=== PATIENT | female | born 1940 | race Caucasian/White ===

== ENCOUNTER 2017-01-03 21:53 | Emergency (ER) | payer OTHER ==
--- NOTE | ~2017-01-03 | CT4 ---
[facility]. [facility] A Service of [facility] RADIOLOGY TEXT RESULTS PATIENT: EARLINE HARRIS LOCATION: SED : 39 UNIT #: [id number] AGE: [address]: Aldo Pink MD SEX: F ORDER DR: [id number] [address] [address] [id number] E MR#: [id number] Acc #: [id number] NAME: EARILNE HARRIS. : 1940 SEX: F STUDY DATE/TIME: 01/03/2017 23:35 UNIT: SED ROOM: STUDY DESCRIPTION: CT Abd and Pelv Wo Cont Attending Physician: Aldo Pink M.D. Ordering Physician: Aldo Pink M.D. Primary Care Physician: Primary Care Physician No MEDICAL IMAGING REPORT This report is preliminary unless electronic signature is present. EXAM CT abdomen and pelvis without contrast 01/03/2017 23:35 HISTORY 76-year-old female abdominal pain with passing blood for [address] abdomen and pelvis without contrast 01/23/2008. TECHNIQUE This CT examination was performed with one or more of the following radiation dose reduction techniques: automatic exposure control, adjustment of mA and/or kV according to patient size, and iterative reconstruction. PROCEDURE 3 mm noncontrast axial images through the abdomen and pelvis. Enteric contrast was not administered. Sagittal and coronal reformatted images were obtained. FINDINGS ABDOMEN: Lung bases are free of consolidation. Heart size is within normal limits. Trace pericardial fluid is similar to the 2007 examination. Mild intrahepatic biliary ductal prominence or dilation up to 4 mm is similar to the 2007 examination. Common bile duct caliber is 8 mm, within normal limits for the patient's stated age. Cholecystectomy. No focal liver lesion. The pancreas is atrophic and partially fatty replaced. The spleen and adrenal glands are normal. Low-density bilateral renal lesions are thought to represent cysts, 1 in the right upper pole measuring 8 mm, another in the left lower pole measuring 1.3 cm. No shadowing renal stone or hydronephrosis. Abdominal aortic caliber is within normal limits, with mild calcific atherosclerosis. [facility] A Service of [facility] & [facility] RADIOLOGY TEXT RESULTS PATIENT: EARLINE HARRIS LOCATION: [facility] : [facility] UNIT #: [id number] AGE: [address]: Aldo Pink MD SEX: F ORDER DR: The appendix is not visualized but no pericecal inflammation is seen. Limited evaluation of bowel due to lack of enteric contrast. Sparse diverticular changes are seen within the sigmoid colon without evidence of acute diverticulitis. No definite active bowel inflammatory process is identified. PELVIS: Urinary bladder and rectum appear stable and within normal limits. Features of pelvic floor laxity with a small enterocele suspected. Hysterectomy. Questionable circumferential anal thickening, correlation with physical examination findings would be recommended. Degenerative changes of the lumbar spine and pubic symphysis. No acute osseous abnormalities are identified. IMPRESSION 1. Questionable anal wall thickening circumferentially. Correlate with physical examination findings. 2. Limited evaluation of bowel due to lack of enteric contrast but no focal bowel inflammatory changes are appreciated. No evidence of high-grade large or small bowel obstruction. No adenopathy, free air or free fluid is seen. 3. Signs of pelvic floor laxity with suspected enterocele. Presumed hysterectomy. 4. Uncomplicated sparse sigmoid diverticulosis. 5. Very mild prominence of the intrahepatic and extrahepatic bile ducts is unchanged from 2008 without obstructing lesion identified. This may represent normal variant for this patient. If patient has symptoms referable to the right upper quadrant, and/or abnormal liver function tests, this could be correlated to ERCP or MRCP. 6. Cholecystectomy. 7. Bilateral renal cysts. Dictated by... Celeste Macario M.D. THIS IS AN ELECTRONICALLY VERIFIED REPORT Celeste Macario M.D. at 01/04/2017 10:03 PM JOSEPHINE/sari TD: 01/04/2017 06:53 JOB #: [id number] MEDICAL IMAGING REPORT
[~2017-01-03 21:53] MED LIST: ADVAIR 2501 DISK W/D PO; ADVAIR 5001 DISK W/1; ADVAIR 5001 DISK W/D PO; ALBUTEROL; ALBUTEROL MININEB NEB; ALBUTEROL17 GM INH; ALBUTEROL17 GM NEB; ALBUTEROL2.5 MG/0.5; ALDACTONE25 MG PO; ALLERGY RELIE15.8 ML; AMARYL PO; AMBIEN PO; AMITRIP PO; AMITRYPTYLINE PO; AMLODIPINE BESYL5 MG; AMLODIPINE BESYL5 MG PO; ASPIRIN81 MG; ASPIRIN81 MG PO; ASPIRINEC PO; ATORVASTATIN CA80 MG; AZITHROMYCIN250 MG PO; BENZONATATE PO; BLOOD PRESSURE MED; CELEXA PO; CIPRO PO; CLARITIN10 M2; CLARITIN10 M2 PO; CLOPIDOGREL BIS75 MG; CLOPIDOGREL75 MG PO; COMBIVENT INH14.7 GM; COMBIVENT MININEB INH; DESYREL100 MG PO; DESYREL50 MG; DESYREL50 MG PO; DETROL LA PO; DIABETIC MED; DIAZEPAM; DIAZEPAM PO; FLOMAX0.4 MG; FLONASE 0.05% N16 G1; FUROSEMIDE40 MG; FUROSEMIDE80 MG PO; GABAPENTIN300 MG PO; GLUCOPHAGE500 MG; GLUCOPHAGE500 MG PO; HUMULIN R100 U/ML SUBQ; HYDROCODON-ACE1 EAC5 PO; HYDROCODON-ACE1 EAC7 PO; IMDUR-ER30 M1 PO; INSULIN; IPRAT-ALBUT 0.5-3 ML INH; IPRATROPIUM0.2 MG/ML; IPRATROPIUM0.2 MG/ML NEB; K-DUR20 ME1 PO; KCL; KCL PO; KLOR-CON PO; KROGER PHARMACY; LANTUS SOLOSTAR3 ML; LANTUS SOLOSTAR3 ML SQ; LANTUS SOLOSTAR3 ML SUBQ; LASIX; LASIX PO; LEVAQUIN PO; LEVAQUIN750 MG; LEVAQUIN750 MG PO; LEVO-T125 MCG; LEVOTHYROXINE25 MC1 PO; LEVOXYL125 MCG PO; LEVOXYL150 MC1 PO; LIORESAL PO; LIPITOR PO; LIPITOR40 MG PO; LISINOPRIL20 MG PO; LOPRESSOR PO; LORTAB 10/500 T1 TAB PO; LORTAB 7.5-5001 TAB; LOSARTAN POTAS100 MG PO; LOSARTAN POTASS50 MG PO; MEDROL PO; MEDROL4 MG/DOSE- PO; METOPROLOL SUCC25 MG PO; METOPROLOL TART25 MG PO; MICRO-K PO; NEURONTIN; NEURONTIN PO; NEURONTIN300 MG; NEURONTIN600 MG PO; NEXIUM; NEXIUM PO; NILSTAT PO; NITROGLYCERIN0.4 MG; NITROGLYCERIN0.4 MG SL; NITROGLYGERIN0.4 MG SL; NORCO1 TAB 10/3; NOVOLIN R100 U/ML INJ; NOVOLOG100 U/ML; PANTOPRAZOLE SO40 MG PO; PATIENT'S PHARMACY; PAXIL CR; PERPHEN PO; PHENERGAN PO; PHENERGAN25 MG PO; PREDNISONE PO; PROAIR HFA INH; PROAIR HFA PO; PROAIR RESPICL90 MCG; PROTONIX; PROTONIX PO; SERTRALINE HCL100 M1 PO; SERTRALINE HCL100 MG; SERTRALINE HCL100 MG PO; SPIRIVA18 MCG; SPIRIVA18 MCG INH; SULAR PO; SYNTHROID; SYNTHROID PO; TRADJENTA5 MG PO; VIBRAMYCIN100 M1 PO; VITAMIN D250000 UNIT PO; WELCHOL625 MG PO; ZETIA PO; ZOLOFT PO; ZYMAR5 ML OP; ZYRTEC10 M2 PO; [UNRECOGNIZED DRUG - OTHER]; [UNRECOGNIZED DRUG - OTHER] OP
[2017-01-03 22:34] LABS: BASOPHIL# 0.1 X10e3 (0-0.3); BASOPHIL% 0.4 % (0-2.5); EOSINOPHIL# 0.1 X10e3 (0-0.7); EOSINOPHIL% 0.6 % (0.0-7.0); HEMATOCRIT 40.1 % (35.0-45.0); HEMOGLOBIN 13.2 gm/dL (12.0-16.0); INR 1.1; LYMPHOCYTE# 1.3 X10e3 (1.0-3.5); LYMPHOCYTE% 10.5 % (17.0-45.0); MEAN CELL VOLUME 90.8 FL (83-96); MEAN CORPUSCULAR HEMOGLOBIN 29.8 PG (28-34); MEAN CORPUSCULAR HGB CONC 32.9 g/dL (30-36); MEAN PLATELET VOLUME 7.9 FL (6.5-11.5); MONOCYTE# 0.6 X10e3 (0-1.0); MONOCYTE% 5.1 % (3.0-12.0); NEUTROPHIL# 10.3 X10e3 (1.5-7.1); NEUTROPHIL% 83.4 % (40-75); PLATELET COUNT 277 X10e3 (140-420); PROTHROMBIN TIME (PATIENT) 12.3 SECONDS (9.5-12.4); RED BLOOD COUNT 4.42 X10e (3.90-5.30); RED CELL DISTRIBUTION WIDTH 13.5 % (11.0-15.5); WHITE BLOOD COUNT 12.3 X10e3 (4.0-10.5)
[2017-01-03 22:42] LABS: PARTIAL THROMBOPLASTIN TIME 23.9 SECONDS (25.6-38.1)
[2017-01-03 22:43] LABS: DIFF IND NO
[2017-01-03 22:45] LABS: ALBUMIN SERUM 4.6 g/dL (3.5-5.0); ALKALINE PHOSPHATASE 83 U/L (32-92); ALT (SGPT) 19 U/L (10-40); AST (SGOT) 17 U/L (10-42); BILIRUBIN,TOTAL 0.6 mg/dL (0.2-2.0); BLOOD UREA NITROGEN 24 mg/dL (9-23); BUN/CREATININE RATIO 18.46; CALCIUM SERUM 10.8 mg/dL (8.4-10.2); CARBON DIOXIDE 28 mmol/L (22-31); CHLORIDE 100 mmol/L (100-111); CREATININE SERUM 1.3 mg/dL (0.6-1.4); GLOM FILT RATE Estimated 42.2 mL/min (>60); GLUCOSE FASTING 157 mg/dL (70-110); LIPASE 26 U/L (22-51); POTASSIUM 3.2 mmol/L (3.5-5.1); PROTEIN TOTAL SERUM 7.7 g/dL (6.0-8.3); SODIUM 139 mmol/L (135-145)
[2017-01-03 22:53] LABS: URINE APPEARANCE SL HAZY; URINE COLOR DK YELLOW
[2017-01-03 22:54] LABS: MICRO INDICATED? YES; URINE BLOOD TRACE-INTACT (NEG); URINE GLUCOSE NEG (NEG); URINE KETONE TRACE (NEG); URINE LEUKOCYTE ESTERASE 1+ (NEG); URINE NITRATE NEG (NEG); URINE PROTEIN NEG (NEG); URINE UROBILINOGEN 0.2 MG/DL (NEG)
[2017-01-03 22:55] LABS: BILIRUBIN, DIRECT <0.1 mg/dL (0.0-0.2); BILIRUBIN,INDIRECT 0.5 mg/dL (0.0-0.9)
[2017-01-03 22:58] LABS: CULTURE INDICATED? YES; URINE BACTERIA 2+ (NEG); URINE CRYSTALS CALCIUM OXALATE /[HPF]; URINE SQUAMOUS EPITHELIAL CELL MODERATE /[HPF]; URINE WBC 25-50 /[HPF] (0-5)
[2017-01-03 22:59] LABS: URINE AMORPHOUS SEDIMENT AMORP URATES; URINE MUCUS PRESENT
== END 2017-01-04 00:41 | disposition home or self-care (01) ==
LOC: SED 21:53
PROVIDERS: Emergency Medicine
DX: K92.2 Gastrointestinal hemorrhage, unspecified (principal); N39.0 Urinary tract infection, site not specified; Z88.0 Allergy status to penicillin; Z88.2 Allergy status to sulfonamides; Z88.6 Allergy status to analgesic agent; Z91.040 Latex allergy status; Z88.1 Allergy status to other antibiotic agents; Z79.899 Other long term (current) drug therapy
CPT/HCPCS: 36415; 74176; 80048; 80076; 81003; 83690; 85025; 85610; 85730; 87086; 96374; 99284; C9113

== ENCOUNTER → 2017-01-08 | Outpatient (CLI) | payer OTHER ==
--- NOTE | ~2017-01-08 | BD1 ---
[facility] A Service of [facility] & [facility] RADIOLOGY TEXT RESULTS PATIENT: EARLINE HARRIS LOCATION: [facility] : 39 UNIT #: [id number] AGE: [address]: TANYA JENNINGS SEX: F ORDER DR: [id number] [address] [address] [id number] O MR#: [id number] Acc #: [id number] NAME: EARLINE HARRIS : 1940 SEX: F STUDY DATE/TIME: 01/08/2017 11:01 UNIT: [facility] ROOM: STUDY DESCRIPTION: Dexa Bone Dens 1+ Site Attending Physician: Tanya Jennings M.D. Referring Physician: Tanya Jennings M.D. Ordering Physician: Physician Non-Staff Primary Care Physician: Primary Care Physician No MEDICAL IMAGING REPORT This report is preliminary unless electronic signature is present. EXAM DXA scan, 01/08/2017 HISTORY Status post menopause with no hormone replacement therapy. Osteoporosis. Thyroid medication. FINDINGS Bone mineral density in the lumbar spine from L1-L4 was 1.034 g/cm2 which is 1.2 standard deviations below the mean when compared to the young adult reference population which is characteristic of osteopenia. This is 0.2 standard deviations above the mean when compared to the age-matched population. Compared with 10/12/2013 there has been an increase in bone mineral density in the lumbar spine of 8%. Bone mineral density in the left femoral neck was 0.798 g/cm2 which is 1.7 standard deviations below the mean when compared to the young adult reference population which is characteristic of osteopenia. This is 0.1 standard deviations above the mean when compared to the age-matched population. Compared with 10/12/2013 there has been an increase in bone mineral density in the left hip of 2.3%. Bone mineral density in the right femoral neck was 0.902 g/cm2 which is 1 standard deviation below the mean when compared to the young adult reference population which is characteristic of osteopenia. This is 0.8 standard deviations above the mean when compared to the age-matched population. Compared with 10/12/2013 there has been an increase in bone mineral density in the right hip of 1.1%. IMPRESSION Bone mineral density in the lumbar spine and the hips bilaterally characteristic of osteopenia. Compared with 10/12/2013 there has been an increase in bone mineral density in the lumbar spine and the hips [facility] A Service of [facility] & [facility] RADIOLOGY TEXT RESULTS PATIENT: EARLINE HARRIS LOCATION: [facility] : 39 UNIT #: [id number] AGE: [address]: TANYA JENNINGS SEX: F ORDER DR: bilaterally. Dictated by... Suleiman Sams M.D. THIS IS AN ELECTRONICALLY VERIFIED REPORT Suleiman Sams M.D. at 01/08/2017 5:48 PM Keaton TD: 01/08/2017 14:58 JOB #: [id number] MEDICAL IMAGING REPORT
== END | disposition home or self-care (01) ==
LOC: SRAD 10:41
DX: Z13.820 Encounter for screening for osteoporosis (principal); Z78.0 Asymptomatic menopausal state
CPT/HCPCS: 77080

== ENCOUNTER 2017-04-25 15:41 | Emergency (ER) | payer OTHER ==
--- NOTE | ~2017-04-25 | CT16 ---
[facility] A Service of [facility] RADIOLOGY TEXT RESULTS PATIENT: EARLINE HARRIS LOCATION: SED : 39 UNIT #: [id number] AGE: [address]: Ewelina Mata MD SEX: F ORDER DR: [id number] [address] [address] [id number] E MR#: [id number] Acc #: [id number] NAME: EARLINE HARRIS. : 1940 SEX: F STUDY DATE/TIME: 04/25/2017 17:39 UNIT: SED ROOM: STUDY DESCRIPTION: CT Angio Chest for PE Attending Physician: Ewelina Mata M.D. Ordering Physician: Ewelina Mata M.D. MEDICAL IMAGING REPORT This report is preliminary unless electronic signature is present. EXAM CT angiogram chest with IV contrast HISTORY Left side chest pain and wheezing, shortness of air and dyspnea for [address] exam was performed with one or more of the following radiation dose reduction techniques: automatic exposure control, adjustment of mA and/or kV according to patient size, and iterative reconstruction. FINDINGS IV contrast to CT angiogram chest was performed with 3-D reconstructions. No focal pulmonary infiltrates or effusions. No pulmonary nodule or mass. Minimal subpleural atelectasis in the posterior right lower lobe. No pulmonary embolus. Normal-caliber pulmonary arteries. No adenopathy. Very small pericardial effusion. IMPRESSION 1. No acute findings. No evidence of pulmonary embolus. 2. Very small pericardial effusion. 3. No active disease in the lungs. Dictated by... Rory Carmichael M.D. THIS IS AN ELECTRONICALLY VERIFIED REPORT Rory Carmichael M.D. at 04/26/2017 5:36 PM YAZAN/manjinder [facility] A Service of [facility] RADIOLOGY TEXT RESULTS PATIENT: EARLINE HARRIS LOCATION: SED : 39 UNIT #: [id number] AGE: [address]: Ewelina Mata MD SEX: F ORDER DR: TD: 04/26/2017 07:50 JOB #: [id number] MEDICAL IMAGING REPORT Page 1 of 1
--- NOTE | ~2017-04-25 | EKG ---
PATIENT: EARLINE HARRIS UNIT #: [id number] Ventricular Rate: 51 BPM Atrial Rate: 51 BPM P-R Interval: 144 ms QRS Duration: 82 ms Q-T Interval: 460 ms QTC Calculation(Bezet): 423 ms P [place]: 41 degrees Calculated R [place]: -18 degrees Calculated T [place]: 5 degrees Diagnosis Line: Sinus bradycardia Diagnosis Line: Minimal voltage criteria for LVH, may be normal Diagnosis Line: variant Diagnosis Line: Possible Anterolateral infarct , age undetermined Diagnosis Line: Abnormal ECG Diagnosis Line: When compared with ECG of 01-NOV-2016 14:57, Diagnosis Line: No significant change was found Diagnosis Line: Confirmed by ELIZABET CHENG MD ([id number]) on Diagnosis Line: 04/26/2017 11:04:25 AM INTERPRETING MD: SKYLAR PEREZ
--- NOTE | ~2017-04-25 | CT2 ---
[facility]. [facility] A Service of [facility] & [facility] RADIOLOGY TEXT RESULTS PATIENT: EARLINE HARRIS LOCATION: SED : 39 UNIT #: [id number] AGE: [address]: Ewelina Mata MD SEX: F ORDER DR: [id number] [address] [address] [id number] E MR#: [id number] Acc #: [id number] NAME: EARLINE HARRIS. : 1940 SEX: F STUDY DATE/TIME: 04/25/2017 16:28 UNIT: SED ROOM: STUDY DESCRIPTION: CT Abd and Pelv W Cont Attending Physician: Ewelina Mata M.D. Ordering Physician: Ewelina Mata M.D. MEDICAL IMAGING REPORT This report is preliminary unless electronic signature is present. EXAM CT abdomen and pelvis with IV contrast HISTORY Less side abdomen pain and left chest pain, and dyspnea for [address] exam was performed with one or more of the following radiation dose reduction techniques: automatic exposure control, adjustment of mA and/or kV according to patient size, and iterative reconstruction FINDINGS CT abdomen and pelvis was performed with IV contrast. CT abdomen: Intrahepatic biliary ductal dilatation with the left central intrahepatic ducts measuring up to 1.3 cm diameter and the central right intrahepatic ducts measuring up to 1 cm. Dilatation of the common hepatic duct measuring 1.8 cm in the common bile duct measuring 1.2 cm. These findings have progressed compared to CT 01/03/2017, and could be secondary to distal common bile duct stricture. No intraluminal filling defect is identified. Suggest correlation to serum bilirubin. Diffuse fatty infiltration of the pancreas and pancreatic parenchymal atrophy. Incidental 2 cm medial descending duodenal diverticulum. The spleen, and adrenal glands are normal. Incidental small bilateral renal cysts measuring up to 1.6 cm in the mid-left kidney. Normal caliber abdominal aorta. Small pericardial effusion. CT pelvis: Hysterectomy. Pelvic floor insufficiency. Urinary bladder is normal. Mild sigmoid diverticulosis. No diverticulitis. No free fluid. IMPRESSION Moderately severe to severe and progressive intra and extrahepatic biliary ductal dilatation compared to 01/03/2017 CT. No intraductal filling STS. [facility] A Service of [facility] & [facility] RADIOLOGY TEXT RESULTS PATIENT: EARLINE HARRIS LOCATION: SED : 39 UNIT #: [id number] AGE: [address]: Ewelina Mata MD SEX: F ORDER DR: defect is identified, but findings could be due to distal common bile duct stricture. Consider correlation to liver function tests and serum bilirubin. Followup MRCP or ERCP may be warranted. No acute findings in the remainder the abdomen or pelvis. Pelvic floor insufficiency. Hysterectomy. Cholecystectomy. Dictated by... Rory Carmichael M.D. THIS IS AN ELECTRONICALLY VERIFIED REPORT Rory Carmichael M.D. at 04/26/2017 5:38 PM Katja TD: 04/26/2017 08:25 JOB #: [id number] MEDICAL IMAGING REPORT Page 1 of 1
[2017-04-25 17:03] LABS: BASOPHIL# 0.1 X10e3 (0-0.3); BASOPHIL% 0.6 % (0-2.5); EOSINOPHIL# 0.1 X10e3 (0-0.7); EOSINOPHIL% 0.7 % (0.0-7.0); HEMATOCRIT 36.5 % (35.0-45.0); HEMOGLOBIN 12.4 gm/dL (12.0-16.0); LYMPHOCYTE% 24.9 % (17.0-45.0); MEAN CELL VOLUME 89.8 FL (83-96); MEAN CORPUSCULAR HEMOGLOBIN 30.6 PG (28-34); MEAN CORPUSCULAR HGB CONC 34.1 g/dL (30-36); MEAN PLATELET VOLUME 8.3 FL (6.5-11.5); MONOCYTE# 0.9 X10e3 (0-1.0); MONOCYTE% 7.2 % (3.0-12.0); NEUTROPHIL# 8.1 X10e3 (1.5-7.1); NEUTROPHIL% 66.6 % (40-75); PLATELET COUNT 258 X10e3 (140-420); RED BLOOD COUNT 4.06 X10e (3.90-5.30); RED CELL DISTRIBUTION WIDTH 14.4 % (11.0-15.5); WHITE BLOOD COUNT 12.2 X10e3 (4.0-10.5)
[2017-04-25 17:04] LABS: DIFF IND NO
[2017-04-25 17:13] LABS: POC - CKMB <1.0 ng/mL (0.0-7.9)
[2017-04-25 17:14] LABS: POC - TROPONIN <0.05 ng/mL (<=0.05)
[2017-04-25 17:17] LABS: PROTHROMBIN TIME (PATIENT) 11.1 SECONDS (9.5-12.4)
[2017-04-25 17:21] LABS: BILIRUBIN, DIRECT 0.1 mg/dL (0.0-0.2); BILIRUBIN,INDIRECT 0.5 mg/dL (0.0-0.9); BILIRUBIN,TOTAL 0.6 mg/dL (0.2-2.0); BUN/CREATININE RATIO 24.28; CALCIUM SERUM 8.8 mg/dL (8.4-10.2); CREATININE SERUM 0.7 mg/dL (0.6-1.4); POTASSIUM 3.4 mmol/L (3.5-5.1); PROTEIN TOTAL SERUM 6.3 g/dL (6.0-8.3)
[2017-04-25 17:48] LABS: MICRO INDICATED? NO; URINE APPEARANCE CLEAR; URINE BILIRUBIN NEG (NEG); URINE BLOOD NEG (NEG); URINE COLOR YELLOW; URINE GLUCOSE NEG (NORM); URINE KETONE NEG (NEG); URINE LEUKOCYTE ESTERASE NEG (NEG); URINE NITRATE NEG (NEG); URINE PROTEIN NEG (NEG); URINE SOURCE CLEAN CATCH; URINE SPECIFIC GRAVITY 1.025 (1.003-1.035); URINE UROBILINOGEN 0.2 MG/DL (NORM)
[2017-04-25 18:40] LABS: POC - CKMB <1.0 ng/mL (0.0-7.9); POC - TROPONIN <0.05 ng/mL (<=0.05)
== END 2017-04-25 20:19 | disposition home or self-care (01) ==
LOC: SED 15:41
PROVIDERS: Emergency Medicine
DX: J44.1 Chronic obstructive pulmonary disease with (acute) exacerbation (principal); R10.9 Unspecified abdominal pain; I50.9 Heart failure, unspecified; E11.9 Type 2 diabetes mellitus without complications; K21.9 Gastro-esophageal reflux disease without esophagitis; E78.5 Hyperlipidemia, unspecified; J44.9 Chronic obstructive pulmonary disease, unspecified; E03.9 Hypothyroidism, unspecified; G47.33 Obstructive sleep apnea (adult) (pediatric); M19.90 Unspecified osteoarthritis, unspecified site; Z90.49 Acquired absence of other specified parts of digestive tract; Z90.710 Acquired absence of both cervix and uterus; Z98.890 Other specified postprocedural states; Z95.5 Presence of coronary angioplasty implant and graft; Z79.82 Long term (current) use of aspirin; Z79.899 Other long term (current) drug therapy; Z88.0 Allergy status to penicillin; Z88.2 Allergy status to sulfonamides; Z88.1 Allergy status to other antibiotic agents; Z91.040 Latex allergy status; Z88.8 Allergy status to other drugs, medicaments and biological substances
CPT/HCPCS: 36415; 71275; 74177; 80048; 80076; 81003; 82553; 82947; 83605; 83880; 84484; 85025; 85610; 85730; 93005; 94640; 96365; 96375; 96376; 99285; J2270; J2405; J2930; J3475; Q9967

== ENCOUNTER 2017-06-10 15:00 | Emergency (ER) | payer OTHER ==
[~2017-06-10] VITALS: Ht 160 cm; Wt 76.2 kg
--- NOTE | ~2017-06-10 | EKG ---
PATIENT: EARLINE HARRIS UNIT #: [id number] Ventricular Rate: 46 BPM Atrial Rate: 46 BPM P-R Interval: 168 ms QRS Duration: 90 ms Q-T Interval: 490 ms QTC Calculation(Bezet): 428 ms P [place]: 34 degrees Calculated R [place]: -14 degrees Calculated T [place]: 32 degrees Diagnosis Line: Sinus bradycardia Diagnosis Line: Otherwise normal ECG Diagnosis Line: When compared with ECG of 25-APR-2017 17:14, Diagnosis Line: No significant change was found Diagnosis Line: Confirmed by BERT HUBER MD ([id number]) on 06/10/2017 Diagnosis Line: 7:01:43 PM INTERPRETING MD: CECILE PEREZ
--- NOTE | ~2017-06-10 | CR72 ---
[facility] A Service of [facility] & [facility] RADIOLOGY TEXT RESULTS PATIENT: EARLINE HARRIS LOCATION: [facility] : 39 UNIT #: [id number] AGE: [address]: Roslyn Byrnes MD SEX: F ORDER DR: [id number] [facility] [address] [place], [place] [address] [id number] E MR#: [id number] Acc #: [id number] NAME: EARLINE HARRIS. : 1940 SEX: F STUDY DATE/TIME: 06/10/2017 19:55 UNIT: [facility] ROOM: STUDY DESCRIPTION: CR Chest Single View Portable Attending Physician: Roslyn Byrnes M.D. Ordering Physician: Roslyn Byrnes M.D. Primary Care Physician: Amaury Swain Jr., A.P.R.N. MEDICAL IMAGING REPORT This report is preliminary unless electronic signature is present EXAM Portable chest. HISTORY Shortness of air and dizzy for 1 month. FINDINGS Mild cardiac enlargement. Normal pulmonary vascularity. Tortuous descending thoracic aorta. No airspace infiltrates or effusions. Minimal mid-left thoracic curve. IMPRESSION No acute findings. Mild cardiac enlargement. Dictated by... Rory Carmichael M.D. THIS IS AN ELECTRONICALLY VERIFIED REPORT Rory Carmichael M.D. at 06/11/2017 4:09 PM DFL/anthony TD: 06/11/2017 08:33 JOB #: [id number] MEDICAL IMAGING REPORT Page 1 of 1 COPY
--- NOTE | ~2017-06-10 | CT71 ---
[facility] A Service of [facility] & [facility] RADIOLOGY TEXT RESULTS PATIENT: EARLINE HARRIS LOCATION: [facility] : 39 UNIT #: [id number] AGE: [address]: Roslyn Byrnes MD SEX: F ORDER DR: [id number] [facility] [address] [place], [place] [address] [id number] E MR#: [id number] Acc #: [id number] NAME: EARLINE HARRIS. : 1940 SEX: F STUDY DATE/TIME: 06/10/2017 19:50 UNIT: [facility] ROOM: STUDY DESCRIPTION: CT Head Wo Contrast Attending Physician: Roslyn Byrnes M.D. Ordering Physician: Roslyn Byrnes M.D. Primary Care Physician: Amaury Swain Jr., A.P.R.N. MEDICAL IMAGING REPORT This report is preliminary unless electronic signature is present EXAM CT brain without contrast HISTORY Dizzy for 3 days. Headache. TECHNIQUE This CT exam was performed with one or more of the following radiation dose reduction techniques: automatic exposure control, adjustment of mA and/or kV according to patient size, and iterative reconstruction. FINDINGS CT brain without contrast demonstrates mild generalized cerebral and cerebellar cortical atrophy. No intracranial hemorrhage, mass or edema. No midline shift or ventricular dilatation or extraaxial fluid collection. Mild mucosal thickening in posterior right ethmoid air cells and in the right sphenoid sinus. IMPRESSION No acute findings. Dictated by... Rory Carmichael M.D. THIS IS AN ELECTRONICALLY VERIFIED REPORT Rory Carmichael M.D. at 06/11/2017 4:09 PM Heladio TD: 06/11/2017 09:37 JOB #: [id number] MEDICAL IMAGING REPORT Page 1 of 1 COPY
[2017-06-10 16:28] LABS: BASOPHIL# 0.1 X10e3 (0-0.3); BASOPHIL% 0.7 % (0-2.5); EOSINOPHIL# 0.1 X10e3 (0-0.7); EOSINOPHIL% 1.4 % (0.0-7.0); HEMATOCRIT 38.3 % (35.0-45.0); LYMPHOCYTE# 1.5 X10e3 (1.0-3.5); LYMPHOCYTE% 18.4 % (17.0-45.0); MEAN CELL VOLUME 89.9 FL (83-96); MEAN CORPUSCULAR HEMOGLOBIN 30.5 PG (28-34); MEAN PLATELET VOLUME 8.1 FL (6.5-11.5); MONOCYTE# 0.5 X10e3 (0-1.0); MONOCYTE% 5.9 % (3.0-12.0); NEUTROPHIL# 5.9 X10e3 (1.5-7.1); NEUTROPHIL% 73.6 % (40-75); PLATELET COUNT 232 X10e3 (140-420); RED BLOOD COUNT 4.26 X10e (3.90-5.30); RED CELL DISTRIBUTION WIDTH 13.6 % (11.0-15.5)
[2017-06-10 16:29] LABS: DIFF IND NO
[2017-06-10 16:49] LABS: ALBUMIN SERUM 4.4 g/dL (3.5-5.0); BILIRUBIN, DIRECT 0.1 mg/dL (0.0-0.2); BILIRUBIN,INDIRECT 0.3 mg/dL (0.0-0.9); BILIRUBIN,TOTAL 0.4 mg/dL (0.2-2.0); BUN/CREATININE RATIO 22.5; CALCIUM SERUM 9.6 mg/dL (8.4-10.2); CREATININE SERUM 0.8 mg/dL (0.6-1.4); GLOM FILT RATE Estimated 70.7 mL/min (>60); POTASSIUM 3.8 mmol/L (3.5-5.1); PROTEIN TOTAL SERUM 7.2 g/dL (6.0-8.3)
[2017-06-10 17:00] LABS: URINE SOURCE CLEAN CATCH
[2017-06-10 17:06] LABS: URINE APPEARANCE CLEAR; URINE BILIRUBIN NEG (NEG); URINE BLOOD NEG (NEG); URINE COLOR YELLOW; URINE GLUCOSE NEG (NEG); URINE KETONE NEG (NEG); URINE LEUKOCYTE ESTERASE NEG (NEG); URINE NITRATE NEG (NEG); URINE PROTEIN NEG (NEG); URINE SPECIFIC GRAVITY 1.011 (1.003-1.035); URINE UROBILINOGEN 0.2 MG/DL (NEG)
[2017-06-10 17:12] LABS: CULTURE INDICATED? NO
[2017-06-10 17:14] LABS: POC - CKMB <1.0 ng/mL (0.0-7.9); POC - TROPONIN <0.05 ng/mL (<=0.05)
[2017-06-10 18:18] LABS: POC - TROPONIN <0.05 ng/mL (<=0.05)
== END 2017-06-10 21:43 | disposition home or self-care (01) ==
LOC: CED 15:00
PROVIDERS: Emergency Medicine
DX: R00.1 Bradycardia, unspecified (principal); J44.9 Chronic obstructive pulmonary disease, unspecified; Z79.82 Long term (current) use of aspirin; Z79.899 Other long term (current) drug therapy; Z88.0 Allergy status to penicillin; Z88.2 Allergy status to sulfonamides; Z88.5 Allergy status to narcotic agent; Z88.7 Allergy status to serum and vaccine; Z91.040 Latex allergy status; Z88.8 Allergy status to other drugs, medicaments and biological substances
CPT/HCPCS: 36415; 70450; 71010; 80048; 80076; 81003; 82553; 83735; 84443; 84484; 85025; 93005; 99285